=== PATIENT | male | born 1960 | race Caucasian/White ===

== ENCOUNTER 2018-07-16 13:37 | Emergency (ER) | payer OTHER ==
[~2018-07-16] VITALS: Ht 177.8 cm; Wt 136.1 kg
[~2018-07-16 13:37] MED LIST: CHOL200027 PO; FAMO-63 PO; PHEN37.53 PO
[2018-07-16] MEDS ORDERED: methylPREDNISolone SOD SUCC PF 125 MG/2 ML VIAL. IM ONE (14:30)
[2018-07-16] MEDS ORDERED: KETOROLAC 60 MG/2 ML VIAL. IM ONE (14:30)
--- NOTE | 2018-07-16 14:54 | PHYS DOC ---
Past Medical History Past Medical History: No Pertinent History, Other Additional Past Medical Histor: sleep apnea Past Surgical History: Other Additional Past Surgical Histo: R hand; right knee; oral; sinus Alcohol Use: Occasionally Drug Use: None Adult General Chief Complaint Chief Complaint: LOWER BACK PAIN OR INJURY HPI HPI Patient is a 58 year old medical presents to the ED today complaining of 6 out of 10 sharp constant low back pain/coccyx pain status post falling on July 07, 2018 at [facility] parking lot. Patient states he was getting out of his car when he fell. Patient denies any loss of consciousness. Denies hitting his head on the ground, denies any numbness or tingling to bilateral lower extremities. Denies any loss of bowel bladder function. He states his pain is worse when he sitting on his buttocks. Review of Systems Review of Systems Constitutional: Denies fever or chills [] GI: Denies abdominal pain, nausea, vomiting, bloody stools or diarrhea [] : Denies dysuria or hematuria [] Musculoskeletal: Reports low back pain, denies joint pain [] Integument: Denies rash or skin lesions [] Neurologic: Denies headache, focal weakness or sensory changes [] All other systems were reviewed and found to be within normal limits, except as documented in this note. Current Medications Current Medications Current Medications Medications (Trade) Dose Ordered Sig/[facility] Start Time Stop Time Status Last Admin Dose Admin Ketorolac Tromethamine (Toradol Im) 60 mg 1X ONCE 07/16/18 14:30 07/16/18 14:31 DC 07/16/18 14:38 60 MG Methylprednisolone Sodium Succinate (SOLU-Medrol 125MG VIAL) 125 mg 1X ONCE 07/16/18 14:30 07/16/18 14:31 DC 07/16/18 14:38 125 MG Allergies Allergies Allergies Coded Allergies Type Severity Reaction Last Updated Verified amoxicillin Allergy Intermediate Rash 07/04/15 Yes cefdinir Allergy Intermediate Rash 07/04/15 Yes clavulanic acid Allergy Intermediate Rash 07/04/15 Yes erythromycin base Allergy Intermediate Rash 07/04/15 Yes Physical Exam Physical Exam Constitutional: Well developed, well nourished, no acute distress, non-toxic appearance. [] Abdomen: Bowel sounds normal, soft, no tenderness, no masses, no pulsatile masses. [] Skin: Warm, dry, no erythema, no rash. [] Back: Tenderness on palpation of the coccyx, no CVA tenderness. Patient is in standing position for comfort. Extremities: No tenderness, no cyanosis, no clubbing, ROM intact, no edema. [] Neurologic: Alert and oriented X 3, normal motor function, normal sensory function, no focal deficits noted. [] Psychologic: Affect normal, judgement normal, mood normal. [] Current Patient Data Vital Signs Vital Signs Date Time Temp Pulse Resp B/P (MAP) Pulse Ox O2 Delivery O2 Flow Rate FiO2 07/16/18 13:43 98.2 90 16 169/98 (121) 98 Room Air 98.2 EKG EKG [] Radiology/Procedures Radiology/Procedures [] Course & Med Decision Making Course & Med Decision Making Pertinent Labs and Imaging studies reviewed. (See chart for details) This is a 58-year-old male patient presented to the ED today with low back pain status post falling on July 07, 2018 at [facility] parking lot. Patient's pain appears musculoskeletal, no cauda equina syndrome symptoms. Was offered radiology studies, he declined. Given Toradol, Solu-Medrol. Discharged with cyclobenzaprine, medrol dose pack and diclofenac. Ice recommended to the area. Follow-up with PCP in 1-2 weeks. Dragon Disclaimer Dragon Disclaimer This electronic medical record was generated, in whole or in part, using a voice recognition dictation system. Departure Departure Impression: Primary Impression: Fall from standing Additional Impression: Lumbar contusion Disposition: HOME, SELF-CARE Condition: STABLE Referrals: PAUL MORGAN (PCP) follow in 1-2 weeks Patient Instructions: Contusion, [id number], Fall Prevention and Home Safety Additional Instructions: You were evaluated in the emergency room for lumbar contusion. Try to ice the affected area. Take the prescribed medications as ordered. Follow-up with your doctor in 1-2 weeks. Come back to the ED at any point symptoms worsen. Scripts Methylprednisolone (MEDROL) 4 Mg Tab.ds.pk 1 PKG PO UD, #1 PKG Prov: MUTUNGARODRIGUEZ PCTS 07/16/18 Diclofenac Sodium (DICLOFENAC SODIUM) 50 Mg Tablet.dr 1 TAB PO BID, #20 TAB 0 Refills Prov: MUTUNGA,RODRIGUEZ PCTS 07/16/18 Cyclobenzaprine Hcl (CYCLOBENZAPRINE HCL) 10 Mg Tablet 1 TAB PO TID, #30 TAB Prov: HAFSARODRIGUEZ MILTON PCTS 07/16/18 Problem Qualifiers Primary Impression: Fall from standing Encounter type: initial encounter Qualified Codes: W19.XXXA - Unspecified fall, initial encounter Additional Impression: Lumbar contusion Encounter type: initial encounter Qualified Codes: S30.0XXA - Contusion of lower back and pelvis, initial encounter HAFSACLAYTONCaryRODRIGUEZ PCTS Jul 16, 2018 14:54
[2018-07-16] MEDS ORDERED: CYCL10TA2 PO (14:59)
[2018-07-16] MEDS ORDERED: METH4TAB2 PO (14:59)
[2018-07-16] MEDS ORDERED: DICL50TA4 PO (14:59)
[2018-07-16 15:03] VITALS: BP 156/95
== END 2018-07-16 15:04 | disposition home or self-care (01) ==
LOC: ER 13:37
DX: S30.0XXA Contusion of lower back and pelvis, initial encounter (principal); Z88.1 Allergy status to other antibiotic agents; Z88.8 Allergy status to other drugs, medicaments and biological substances; W18.39XA Other fall on same level, initial encounter; Y93.89 Activity, other specified; Y92.481 Parking lot as the place of occurrence of the external cause; Y99.8 Other external cause status
CPT/HCPCS: 96372; 99283; J1885; J2930

== ENCOUNTER → 2020-12-06 | Outpatient (CLI) | payer OTHER ==
[~2020-12-06] MED LIST changes: +CYCL10TA2 PO; +DICL50TA4 PO; +METH4TAB2 PO
--- NOTE | 2020-12-06 14:48 | KCIC ---
EXAM: CT coronary artery calcium screening; radiologist over read. HISTORY: Hypertension. Family history of heart disease. TECHNIQUE: Computed tomographic images of the chest were obtained without contrast. Multiplanar refor matting was performed. *One or more of the following individualized dose reduction techniques were utilized for this examina tion: 1. Automated exposure control. 2. Adjustment of the mA and/or kV according to patient size. 3. Use of iterative reconstruction technique. COMPARISON: None. FINDINGS: The heart is normal in size. The visualized aorta is normal in caliber. There are calcified mediastinal, hilar and pulmonary granulomas. There is no infiltrate, pleural effusion or pneumothora x. There is a 2 mm groundglass nodular opacity within the posterior lateral left lower lobe and 3 mm groundglass opacity within the lateral right lower lobe. These are likely benign. There is no acute f inding involving the upper abdomen or osseous structures. Coronary artery calcium score: 0. IMPRESSION: 1. Coronary artery calcium score of 0. No evidence of calcified atherosclerotic plaque. 2. Tiny groundglass nodular opacities within the lower lobes measuring up to 3 mm. These are benign i n appearance. Electronically signed by: Ramona Swift MD (12/06/2020 2:46 PM) [facility]
== END ==
LOC: KCIC CT 13:47
PROVIDERS: ATTEND Physician Assistant
DX: I10 Essential (primary) hypertension (principal); J84.10 Pulmonary fibrosis, unspecified
CPT/HCPCS: 75571

== ENCOUNTER → 2021-05-13 | Outpatient (CLI) | payer OTHER ==
[~2021-05-13] MED LIST changes: +CYCL10TA19 PO; -CYCL10TA2 PO
== END ==
LOC: LAB 15:40
PROVIDERS: ATTEND Internal Medicine Pulmonary Disease
DX: R50.9 Fever, unspecified (principal); R51.9 Headache, unspecified; J02.9 Acute pharyngitis, unspecified; R19.7 Diarrhea, unspecified; R11.2 Nausea with vomiting, unspecified; M79.10 Myalgia, unspecified site; Z20.822 Contact with and (suspected) exposure to COVID-19
CPT/HCPCS: U0003; U0005